=== PATIENT | male | born 1985 | race Caucasian/White ===

== ENCOUNTER 2020-12-13 12:25 | Emergency (ER) | payer OTHER ==
[~2020-12-13] VITALS: Ht 170.2 cm; Wt 83.9 kg
--- NOTE | 2020-12-13 12:35 | NUR ---
THE PATIENT BIB FRIEND DUE TO WOKE UP WITH FACIAL SWELLING/FACE AND SCALP BLISTERS THIS MORNING,STS, HE IS AALERGIC TO HAIR DYES AND ACCIDENTALLY USED SHAMPOO USED TO DYE HAIR. DENIES PAIN AT THIS TIME. IN ROOM AIR AND DENIES SOB. RESPIRATION REGULAR AND UNLABORED. ALERT AND ORIENTED X4. ATTACHED TO THE MONITOR.
[2020-12-13] MEDS ORDERED: diphenhydrAMINE HCL 50 MG/ML VIAL ONE (12:53)
[2020-12-13] MEDS ORDERED: EPINEPHRINE (1:1000) 1 MG/ML AMPUL ONE (12:53)
[2020-12-13] MEDS ORDERED: methylPREDNISolone SOD SUCC 125 MG/2ML VIAL ONE (12:53)
[2020-12-13] MEDS ORDERED: FAMOTIDINE/PF INJ 20 MG/2 ML VIAL IV ONE (12:53)
[2020-12-13] MEDS: IV NS 0.9% 1,000 ML BAG IV ONE (13:26)
[2020-12-13] MEDS: diphenhydrAMINE HCL 50 MG/ML VIAL IV ONE (13:26)
[2020-12-13] MEDS: FAMOTIDINE/PF INJ 20 MG/2 ML VIAL IV ONE (13:26)
[2020-12-13] MEDS: EPINEPHRINE (1:1000) MDV 30 MG/30ML VIAL SUBCUT ONE (13:30)
[2020-12-13] MEDS: methylPREDNISolone SOD SUCC 125 MG/2ML VIAL IV ONE (13:30)
--- NOTE | 2020-12-13 13:30 | NUR ---
SOLU-MEDROL NOT GIVEN DUE TO PATIENT STATED THAT HE IS ALLERGIC TO PREDNISON. DR PACK MADE AWARE.
[2020-12-13] MEDS ORDERED: FAMO-131 PO (13:32)
[2020-12-13] MEDS ORDERED: CETI-233 PO (13:32)
[2020-12-13] MEDS ORDERED: PRED20TA PO (13:39)
--- NOTE | 2020-12-13 14:00 | NUR ---
After talking to Dr Harvey the patient stated that he is not allergic to prednisone and he does not get any reaction from the medication. Per MD to give prednisone.
[2020-12-13] MEDS ORDERED: predniSONE 20 MG TABLET ONE (14:04)
[2020-12-13] MEDS: predniSONE 50 MG TABLET PO ONE (14:09)
--- NOTE | 2020-12-13 14:19 | NUR ---
The patient alert and oriented x4. Denies SOB. Respiration regular and unlabored. Denies pain. Patient discharged to home in stable condition. Written and verbal after care instructions given. Patient verbalizes understanding of instruction.
[2020-12-13 14:23] VITALS: BP 131/80
== END 2020-12-13 14:23 | disposition home or self-care (01) ==
LOC: ER 12:25
DX: S00.81XA Abrasion of other part of head, initial encounter (principal); L23.4 Allergic contact dermatitis due to dyes; F10.10 Alcohol abuse, uncomplicated; F17.200 Nicotine dependence, unspecified, uncomplicated; R00.0 Tachycardia, unspecified; G40.909 Epilepsy, unspecified, not intractable, without status epilepticus; Y90.9 Presence of alcohol in blood, level not specified; Z87.442 Personal history of urinary calculi; Z86.19 Personal history of other infectious and parasitic diseases; Z88.0 Allergy status to penicillin; X58.XXXA Exposure to other specified factors, initial encounter; Y93.89 Activity, other specified; Y92.89 Other specified places as the place of occurrence of the external cause; Y99.8 Other external cause status
CPT/HCPCS: 96361; 96372; 96374; 96375; 99284; J0171 ×2; J1200; J3490; J7030; J7512; J2930